=== PATIENT | female | born 1995 | race Hispanic/Latino ===

== ENCOUNTER 2019-12-16 21:43 | Emergency (ER) | payer BC, OTHER ==
[2019-12-16] MEDS ORDERED: NA CHLORIDE 0.9% 1,000 ML ONE (22:17)
[2019-12-16 22:32] LABS: Absolute Lymphocytes (CBC) 1.9 K/uL (0.7-4.9); Basophils % 0.3 % (0-1.3); Lymphocytes % 14.8 % (15.3-44.8); MPV 8.9 fL (7.6-11.3); RBC Red Blood Cell Count 3.78 M/uL (3.86-4.86)
[2019-12-16 23:00] LABS: Potassium 3.5 mmol/L (3.5-5.1)
[2019-12-17] MEDS ORDERED: NA CHLORIDE 0.9% 1,000 ML ONE (00:05)
--- NOTE | 2019-12-17 00:50 | ER ---
Nurse's Notes [facility] Name: Natali Costello Age: 23 yrs Sex: Female : 1995 Arrival Date: 12/16/2019 Time: 21:44 Bed 5 Private MD: Diagnosis: Other specified abnormal uterine and vaginal bleeding Presentation: 12/15 21:58 Chief complaint: Patient states: Took Cytotec prescribed by doctor about 1100 today, lp1 began having vaginal bleeding with clots about 1400; states tonight she took up and felt like she was going to black out; states some pelvic cramping. Coronavirus screen: Proceed with normal triage. Ebola Screen: No symptoms or risks identified at this time. Initial Sepsis Screen: Does the patient meet any 2 criteria? No. Patient's initial sepsis screen is negative. Does the patient have a suspected source of infection? No. Patient's initial sepsis screen is negative. Risk Assessment: Do you want to hurt yourself or someone else? Patient reports no desire to harm self or others. Onset of symptoms was December 16, 2019. 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 - Social history:: Smoking status: Patient/guardian denies using tobacco, Stopped _ months ago 1. Screenin:00 Abuse screen: Denies threats or abuse. Denies injuries from another. Nutritional lp1 screening: No deficits noted. Tuberculosis screening: No symptoms or risk factors identified. Fall Risk None identified. Assessment: 22:10 General: Appears in no apparent distress. comfortable, Behavior is calm, cooperative. mg2 Pain: Complains of pain in abdomen Pain currently is 2 out of 10 on a pain scale. Quality of pain is described as crampy, Pain began gradually. Neuro: Level of Consciousness is awake, alert, obeys commands, Oriented to person, place, time, situation. Cardiovascular: Capillary refill < 3 seconds Patient's skin is warm and dry. Respiratory: Airway is patent Respiratory effort is even, unlabored, Respiratory pattern is regular, symmetrical. GI: Abdomen is flat, Reports lower abdominal pain. : Urine is vijaya blood, Reports vaginal bleeding that is with clots, heavy flow since 11 am today. EENT: No signs and/or symptoms were reported regarding the EENT system. Derm: Skin is intact, is healthy with good turgor, Skin is pink, warm \T\ dry. normal. Musculoskeletal: Circulation, motion, and sensation intact. Capillary refill < 3 seconds. 23:40 Reassessment: Patient appears in no apparent distress at this time. Patient and/or mg2 family updated on plan of care and expected duration. Pain level reassessed. Patient is alert, oriented x 3, equal unlabored respirations, skin warm/dry/pink. 12/16 00:30 Reassessment: Patient and/or family updated on plan of care and expected duration. Pain jd3 level reassessed. Patient is alert, oriented x 3, equal unlabored respirations, skin warm/dry/pink. Patient states feeling better. 01:05 Reassessment: Patient appears in no apparent distress at this time. Patient and/or mg2 family updated on plan of care and expected duration. Pain level reassessed. patient for dc after completing iv fluid. Vital Signs: 12/15 21:58 BP 112 / 57; Pulse 73; Resp 18; Temp 98.1(TE); Pulse Ox 99% on R/A; Weight 81.65 kg lp1 (R); Height 5 ft. 4 in. (162.56 cm); Pain 6/10; 22:30 BP 103 / 42; Pulse 73; Resp 18; Pulse Ox 95% ; mg2 23:38 BP 91 / 45; Pulse 65; Resp 18; Pulse Ox 100% on R/A; mg2 12/16 00:30 BP 93 / 51 Supine; Pulse 76; jd3 00:30 BP 96 / 47 Sitting; Pulse 70; jd3 00:30 BP 101 / 49 Standing; Pulse 66; jd3 01:02 BP 100 / 61; Pulse 69; Resp 18; Pulse Ox 100% on R/A; ea 12/15 21:58 Body Mass Index 30.90 (81.65 kg, 162.56 cm) lp1 ED Course: 06/17 21:44 Patient arrived in ED. ds1 21:58 Nani Osorio FNP-C [facility]. snw 21:58 Josef London MD is Attending Physician. snw 22:00 Triage completed. lp1 22:00 Arm band placed on. lp1 22:01 Tushar Spence, ALVIN is Primary Nurse. mg2 22:10 Inserted saline lock: 20 gauge in right antecubital area, using aseptic technique. mg2 Blood collected. 22:13 No provider procedures requiring assistance completed. mg2 23:03 Patient has correct armband on for positive identification. Pulse ox on. NIBP on. Door mg2 closed. Warm blanket given. 23:09 US Transvaginal Ob In Process Unspecified. EDMS 12/16 01:27 IV discontinued, intact, bleeding controlled, No redness/swelling at site. Pressure mg2 dressing applied. Administered Medications: 12/15 22:13 Drug: NS 0.9% 1000 ml Route: IV; Rate: 1 bolus; Site: right antecubital; mg2 12/16 00:41 Follow up: Response: No adverse reaction; IV Status: Completed infusion; IV Intake: mg2 1000ml 12/15 23:55 Drug: NS 0.9% 1000 ml Route: IV; Rate: 1 bolus; Site: right antecubital; mg2 12/16 01:27 Follow up: Response: No adverse reaction; IV Status: Completed infusion; IV Intake: mg2 1000ml Intake: 00:41 IV: 1000ml; Total: 1000ml. mg2 01:27 IV: 1000ml; Total: 2000ml. mg2 Outcome: 00:50 Discharge ordered by . snw 01:06 Discharged to home ambulatory. mg2 01:06 Condition: stable 01:06 Instructed on discharge instructions, follow up and referral plans. medication usage, Demonstrated understanding of instructions, follow-up care, medications, Prescriptions given X 1. 01:27 Patient left the ED. mg2 Signatures: Dispatcher [employer] EDNH Nani Osorio FNP-C BUOY TENDER-CsnEvelyn Leyva ds1 Cira Costello RN RN lp1 Nguyen Terrell RN RN ea Davies, Jonathon, RN RN jd3 Tushar Spence RN RN mg2 Corrections: (The following items were deleted from the chart) 27 01:06 Discharged to home mg2 mg2
--- NOTE | 2019-12-17 00:51 | EDPHYS ---
Physician Documentation [facility] Name: Natali Costello Age: 23 yrs Sex: Female : 1995 Arrival Date: 12/16/2019 Time: 21:44 Bed 5 Private MD: ED Physician Josef London HPI: 12/15 22:21 This 23 yrs old Female presents to ER via Ambulatory with complaints of snw Vaginal Bleeding. 22:21 The patient presents with vaginal bleeding that is moderate. Onset: The snw symptoms/episode began/occurred today. Modifying factors: the symptoms are aggravated by nothing. Associated signs and symptoms: Pertinent positives: near syncope. Severity of symptoms: At their worst the symptoms were moderate. The patient has not experienced similar symptoms in the past. pt took cytotec at 1100 today, given from [facility] for . Pt states her US showed a 6 wk intrauterine . 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 - Social history:: Smoking status: Patient/guardian denies using tobacco, Stopped _ months ago 1. ROS: 22:20 Constitutional: Negative for fever, chills, and weight loss, Eyes: Negative for injury, snw pain, redness, and discharge, ENT: Negative for injury, pain, and discharge, Neck: Negative for injury, pain, and swelling, Cardiovascular: Negative for chest pain, palpitations, and edema, Respiratory: Negative for shortness of breath, cough, wheezing, and pleuritic chest pain, Abdomen/GI: Negative for abdominal pain, nausea, vomiting, diarrhea, and constipation, Back: Negative for injury and pain, MS/Extremity: Negative for injury and deformity, Skin: Negative for injury, rash, and discoloration. 22:20 : Positive for vaginal bleeding, cramping. 22:20 Neuro: Positive for near syncope. Exam: 22:20 Constitutional: This is a well developed, well nourished patient who is awake, alert, snw and in no acute distress. Head/Face: Normocephalic, atraumatic. Eyes: Pupils equal round and reactive to light, extra-ocular motions intact. Lids and lashes normal. Conjunctiva and sclera are non-icteric and not injected. Cornea within normal limits. Periorbital areas with no swelling, redness, or edema. ENT: Nares patent. No nasal discharge, no septal abnormalities noted. Tympanic membranes are normal and external auditory canals are clear. Oropharynx with no redness, swelling, or masses, exudates, or evidence of obstruction, uvula midline. Mucous membranes moist. Neck: Trachea midline, no thyromegaly or masses palpated, and no cervical lymphadenopathy. Supple, full range of motion without nuchal rigidity, or vertebral point tenderness. No Meningismus. Chest/axilla: Normal chest wall appearance and motion. Nontender with no deformity. No lesions are appreciated. Cardiovascular: Regular rate and rhythm with a normal S1 and S2. No gallops, murmurs, or rubs. Normal PMI, no JVD. No pulse deficits. Respiratory: Lungs have equal breath sounds bilaterally, clear to auscultation and percussion. No rales, rhonchi or wheezes noted. No increased work of breathing, no retractions or nasal flaring. Abdomen/GI: Soft, non-tender, with normal bowel sounds. No distension or tympany. No guarding or rebound. No evidence of tenderness throughout. Back: No spinal tenderness. No costovertebral tenderness. Full range of motion. Skin: Warm, dry with normal turgor. Normal color with no rashes, no lesions, and no evidence of cellulitis. MS/ Extremity: Pulses equal, no cyanosis. Neurovascular intact. Full, normal range of motion. Neuro: Awake and alert, GCS 15, oriented to person, place, time, and situation. Cranial nerves II-XII grossly intact. Motor strength 5/5 in all extremities. Sensory grossly intact. Cerebellar exam normal. Normal gait. Psych: Awake, alert, with orientation to person, place and time. Behavior, mood, and affect are within normal limits. Vital Signs: 21:58 BP 112 / 57; Pulse 73; Resp 18; Temp 98.1(TE); Pulse Ox 99% on R/A; Weight 81.65 kg lp1 (R); Height 5 ft. 4 in. (162.56 cm); Pain 6/10; 22:30 BP 103 / 42; Pulse 73; Resp 18; Pulse Ox 95% ; mg2 23:38 BP 91 / 45; Pulse 65; Resp 18; Pulse Ox 100% on R/A; mg2 12/16 00:30 BP 93 / 51 Supine; Pulse 76; jd3 00:30 BP 96 / 47 Sitting; Pulse 70; jd3 00:30 BP 101 / 49 Standing; Pulse 66; jd3 01:02 BP 100 / 61; Pulse 69; Resp 18; Pulse Ox 100% on R/A; ea 12/15 21:58 Body Mass Index 30.90 (81.65 kg, 162.56 cm) lp1 MDM: 12/15 22:22 Patient medically screened. snw 23:12 Data reviewed: vital signs, nurses notes. Data interpreted: Pulse oximetry: on room air snw is 95 %. Interpretation: acceptable. Counseling: I had a detailed discussion with the patient and/or guardian regarding: the historical points, exam findings, and any diagnostic results supporting the discharge/admit diagnosis, radiology results, the need for outpatient follow up, for definitive care. 12/15 21:59 Order name: Quantitative Hcg; Complete Time: 23:01 snw 12/15 21:59 Order name: Abo/rh Typing; Complete Time: 00:48 snw 12/15 21:59 Order name: Basic Metabolic Panel; Complete Time: 23:01 snw 12/15 21:59 Order name: CBC with Diff; Complete Time: 22:52 snw 12/15 21:59 Order name: US Transvaginal Ob snw 12/15 21:59 Order name: IV Saline Lock; Complete Time: 22:13 snw 12/15 21:59 Order name: Labs collected and sent; Complete Time: 22:13 snw 12/15 21:59 Order name: NPO; Complete Time: 23:01 snw 12/15 23:51 Order name: Orthostatics; Complete Time: 00:29 snw Administered Medications: 22:13 Drug: NS 0.9% 1000 ml Route: IV; Rate: 1 bolus; Site: right antecubital; mg2 12/16 00:41 Follow up: Response: No adverse reaction; IV Status: Completed infusion; IV Intake: mg2 1000ml 12/15 23:55 Drug: NS 0.9% 1000 ml Route: IV; Rate: 1 bolus; Site: right antecubital; mg2 12/16 01:27 Follow up: Response: No adverse reaction; IV Status: Completed infusion; IV Intake: mg2 1000ml Disposition: 02:28 Co-signature as Attending Physician, Josef London MD. rn Disposition: 12/17/19 00:50 Discharged to Home. Impression: Other specified abnormal uterine and vaginal bleeding. - Condition is Stable. - Discharge Instructions: Rehydration, Adult, Prostaglandin-Induced , Care After. - Prescriptions for Mobic 7.5 mg Oral Tablet - take 1 tablet by ORAL route every 12 hours take with food; 20 tablet. - Medication Reconciliation Form, Thank You Letter, Antibiotic Education, Prescription Opioid Use form. - Follow up: Emergency Department; When: As needed; Reason: Worsening of condition. Follow up: Private Physician; When: 1 - 2 days; Reason: Recheck today's complaints, Continuance of care, Re-evaluation by your physician. Signatures: Dispatcher [employer] EDOK Nani Osorio, JOSE JUAN-C VIDEO CLERK-Csnw Josef London MD MD rn Pena, Laura, RN RN lp1 Tushar Spence RN RN mg2 Corrections: (The following items were deleted from the chart) 01:27 00:50 12/17/2019 00:50 Discharged to Home. Impression: Other specified abnormal uterine mg2 and vaginal bleeding. Condition is Stable. Forms are Medication Reconciliation Form, Thank You Letter, Antibiotic Education, Prescription Opioid Use. Follow up: Emergency Department; When: As needed; Reason: Worsening of condition. Follow up: Private Physician; When: 1 - 2 days; Reason: Recheck today's complaints, Continuance of care, Re-evaluation by your physician. snw
[2019-12-17 01:33] VITALS: TEMP 98.1
[2019-12-17 01:36] VITALS: O2SAT 100
[2019-12-17 01:38] VITALS: BP 100/61
--- NOTE | 2019-12-17 09:34 | RAD REPORT ---
EXAM DESCRIPTION: US - Transvaginal OB - 12/16/2019 11:09 pm CLINICAL HISTORY: ABD CRAMPING, COMPARISON: OB Complete dated 03/14/2016 FINDINGS: The uterus appears mildly enlarged. The endometrium appears thickened heterogenous measuri ng 2.4 cm. There is no IUP evident. The maternal adnexa and ovaries are within normal limits. Normal Doppler blood flow was demonstrated to both ovaries. IMPRESSION: Thickened and heterogenous endometrium measuring 2.4 cm. No IUP is evident within the en dometrium. In the setting of a positive HCG level, the findings could indicate a of unknown location. Advise correlation with serial HCG levels and follow-up pelvic ultrasound 7-10 days.
== END 2019-12-17 01:27 | disposition home or self-care (01) ==
LOC: ER 21:43
DX: N93.8 Other specified abnormal uterine and vaginal bleeding (principal); Z88.0 Allergy status to penicillin
CPT/HCPCS: 96361; 85025; 80048; 36415; 86900; 86901; 84702; 76817; 96360; 99284; J7030